=== PATIENT | female | born 1990 | race Caucasian/White ===

== ENCOUNTER 2022-07-09 14:30 | Emergency (ER) | payer SELFPAY ==
[~2022-07-09] VITALS: Ht 165.1 cm; Wt 88.5 kg
[2022-07-09 14:36] VITALS: BP 121/57
== END 2022-07-09 19:46 | disposition left against medical advice (07) ==
LOC: ER 14:36
DX: S41.101A Unspecified open wound of right upper arm, initial encounter (principal); Z53.21 Procedure and treatment not carried out due to patient leaving prior to being seen by health care provider; W54.0XXA Bitten by dog, initial encounter; Y93.89 Activity, other specified; Y92.89 Other specified places as the place of occurrence of the external cause; Y99.8 Other external cause status